=== PATIENT | female | born 1995 | race African-American/Black ===

== ENCOUNTER 2017-06-05 22:22 | Emergency (ER) | payer OTHER ==
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
[2017-06-06 01:43] VITALS: BP 123/75
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
== END 2017-06-06 02:00 | disposition home or self-care (01) ==
LOC: ER 22:22
DX: S39.012A Strain of muscle, fascia and tendon of lower back, initial encounter (principal); M54.9 Dorsalgia, unspecified; M54.5 Low back pain; M54.2 Cervicalgia; V87.7XXA Person injured in collision between other specified motor vehicles (traffic), initial encounter
CPT/HCPCS: 99284

== ENCOUNTER 2019-02-24 21:48 | Emergency (ER) | payer OTHER ==
[2019-02-24 22:39] LABS: ABSOLUTE EOSINOPHILS # (AUTO) 0.1 10^3/uL (0.0-0.6); ABSOLUTE LYMPHOCYTES (AUTO) 3.2 10^3/uL (0.5-4.7); ABSOLUTE MONOCYTES (AUTO) 0.4 10^3/uL (0.1-1.4); ABSOLUTE NEUT (AUTO) 4.1 10^3/uL (1.7-8.2); BASOPHILS % (AUTO) 0.2 % (0-2); EOSINOPHILS % (AUTO) 1.1 % (0-6); HEMATOCRIT 35.6 % (36.0-47.0); HEMOGLOBIN 11.9 g/dL (12.0-15.5); LYMPHOCYTES % (AUTO) 41.3 % (13-45); MEAN CORPUSCULAR HEMOGLOBIN 28.7 pg (27.0-33.4); MEAN CORPUSCULAR HGB CONC 33.6 g/dL (32.0-36.0); MEAN CORPUSCULAR VOLUME 86 fl (80-97); MONOCYTES % (AUTO) 5.7 % (3-13); PLATELET COUNT 193 10^3/uL (150-450); RED BLOOD COUNT 4.16 10^6/uL (3.72-5.28); RED CELL DISTRIBUTION WIDTH 14.2 % (11.5-14.0); SEGMENTED NEUTROPHILS % (AUTO) 51.7 % (42-78); TOTAL CELLS COUNTED % (AUTO) 100 %; WHITE BLOOD COUNT 7.8 10^3/uL (4.0-10.5)
[2019-02-24 22:42] LABS: APPEARANCE,URINE SLIGHTLY-CLOUDY; BILIRUBIN,URINE NEGATIVE (NEGATIVE); COLOR,URINE YELLOW; GLUCOSE, URINE NEGATIVE (NEGATIVE); KETONES,URINE TRACE mg/dL (NEGATIVE); LEUKOCYTE ESTERASE,URINE TRACE (NEGATIVE); NITRITE,URINE NEGATIVE (NEGATIVE); PROTEIN,URINE 30 mg/dL (NEGATIVE); URINE SPECIFIC GRAVITY 1.028; UROBILINOGEN,URINE NEGATIVE mg/dL (<2.0)
--- NOTE | 2019-02-24 22:53 | ER Document Report ---
ED Medical Screen (RME) - General Chief Complaint: Abdominal Pain Stated Complaint: ABDOMINAL PAIN Time Seen by Provider: 02/24/19 22:50 Primary Care Provider: SANTO WEBB [Primary Care Provider] - Follow up as needed Notes: She is a 24-year-old female presents to the emergency department with a chief complaint of lower abdominal pain. Patient states that the pain developed around the afternoon on Sunday. Patient states she has been taking ibuprofen with minimal relief. Patient states she did start her menstrual cycle on Sunday but that this pain is different from her normal menstrual cramping. Patient reports burning with urination and frequency. Patient also complaint of low back pain. Patient denies fever. Patient denies nausea vomiting or diarrhea. Patient denies vaginal discharge. Patient states she had a normal bowel movement today. Patient states she has not been sexually active and mo nths. TRAVEL OUTSIDE OF THE [place] IN LAST 30 DAYS: No - Related Data Allergies/Adverse Reactions: amoxicillin Allergy (Verified 02/24/19 21:52) Pertussis Vaccines Allergy (Verified 02/24/19 21:52) Past Medical History Renal/ Medical History: Denies: Hx Peritoneal Dialysis Physical Exam - Vital signs Vitals: Temp Pulse Resp BP Pulse Ox 98.7 F 67 20 118/74 100 02/24/19 22:15 02/24/19 22:15 02/24/19 22:15 02/24/19 22:15 02/24/19 22:15 - Abdominal Inspection: Normal Distension: No distension Bowel sounds: Normal Tenderness: Tender - RLQ Organomegaly: No organomegaly Course - Re-evaluation Re-evalutation: 02/24/19 22:51 Basic lab work and urinalysis initiated in triage. Patient did have right lower quadrant tenderness with palpation but will need a bed to further assessed the abdomen. I have greeted and performed a rapid initial assessment of this patient. A comprehensive ED assessment and evaluation of the patient, analysis of test results and completion of the medical decision making process will be conducted by additional ED providers. - Vital Signs Vital signs: Temp Pulse Resp BP Pulse Ox 98.7 F 67 20 118/74 100 02/24/19 22:15 02/24/19 22:15 02/24/19 22:15 02/24/19 22:15 02/24/19 22:15 - Laboratory Result Diagrams: 02/24/19 22:21 02/24/19 22:21 Laboratory results interpreted by me: 02/24/19 02/24/19 21:26 22:21 Hgb 11.9 L Hct 35.6 L RDW 14.2 H Urine Protein 30 H Urine Ketones TRACE H Urine Blood LARGE H Ur Leukocyte Esterase TRACE H Urine Ascorbic Acid 40 H Doctor's Discharge - Discharge Referrals: LOCALMD,NO [Primary Care Provider] - Follow up as needed
[2019-02-24 22:54] LABS: ALANINE AMINOTRANSFERASE 12 U/L (9-52); ALBUMIN 4.4 g/dL (3.5-5.0); ALKALINE PHOSPHATASE 49 U/L (38-126); ANION GAP 10 (5-19); ASPARTATE AMINO TRANSFERASE 18 U/L (14-36); BILIRUBIN,DIRECT 0.2 mg/dL (0.0-0.4); BILIRUBIN,TOTAL 0.3 mg/dL (0.2-1.3); BLOOD UREA NITROGEN 7 mg/dL (7-20); CALCIUM 9.1 mg/dL (8.4-10.2); CARBON DIOXIDE 27 mmol/L (22-30); CHLORIDE 105 mmol/L (98-107); GLUCOSE 85 mg/dL (75-110); LIPASE 69.1 U/L (23-300); POTASSIUM 3.4 mmol/L (3.6-5.0); SODIUM 141.5 mmol/L (137-145); TOTAL PROTEIN 7.2 g/dL (6.3-8.2)
[2019-02-25] MEDS ORDERED: SULFAMETHOXAZOLE/TRIMETHOPRIM 800-160 MG TABLET PO ONE (01:08)
--- NOTE | 2019-02-25 01:09 | ER Document Report ---
ED General - General Chief Complaint: Abdominal Pain Stated Complaint: ABDOMINAL PAIN Time Seen by Provider: 02/24/19 22:50 Primary Care Provider: SANTO WEBB [Primary Care Provider] - Follow up as needed Notes: Patient is a 24-year-old female that presents to the emergency department for chief complaint of right lower quadrant abdominal pain. Patient states that this pain started on Sunday, has been persistent, and ongoing since then describes it as a cramping sensation on the right side, and currently rates it as a 2 out of 10, she is no associated nausea, vomiting, fevers, chills, palpitations. She states it does feel like period cramps, she did start her menstrual cycle on Sunday, but it typically does not last as long. She has had some burning sensation and pain with urination as well, and is not sure if she is having a urinary tract infection or not. Denies any other complaints at this time. Past Medical History: Denies chronic medical conditions Past Surgical History: Spinal surgery Social History: Denies tobacco, alcohol or drug use. Family History: Reviewed and noncontributory for presenting illness Allergies: Reviewed, see documented allergy list. REVIEW OF SYSTEMS: Other than noted above, the 12 point review of systems was reviewed with the patient and were negative, all pertinent findings are included in the HPI. PHYSICAL EXAMINATION: Vital signs reviewed, nursing noted reviewed. GENERAL: Well-appearing, well-nourished and in no acute distress. HEAD: Atraumatic, normocephalic. EYES: Eyes appear normal, extraocular movements intact, sclera anicteric, conjunctiva are normal. ENT: nares patent, oropharynx clear without exudates. Moist mucous membranes. NECK: Normal range of motion, supple without lymphadenopathy LUNGS: Breath sounds clear to auscultation bilaterally and equal. No wheezes rales or rhonchi. HEART: Regular rate and rhythm without murmurs ABDOMEN: Soft, there is mild right lower quadrant and suprapubic tenderness to palpation on exam, no CVA tenderness, normoactive bowel sounds. No rebound, guarding, or rigidity. No masses appreciated. EXTREMITIES: Nontender, good range of motion, no pitting or edema. NEUROLOGICAL: No focal neurological deficits. Moves all extremities spontaneously Motor and sensory grossly intact on exam. PSYCH: Normal mood, normal affect. SKIN: Warm, Dry, normal turgor, no rashes or lesions noted on exposed skin TRAVEL OUTSIDE OF THE [place] IN LAST 30 DAYS: No - Related Data Allergies/Adverse Reactions: amoxicillin Allergy (Verified 02/24/19 21:52) Pertussis Vaccines Allergy (Verified 02/24/19 21:52) Past Medical History - Social History Smoking Status: Never Smoker Chew tobacco use (# tins/day): No Frequency of alcohol use: None Drug Abuse: None Family History: Reviewed & Not Pertinent Patient has suicidal ideation: No Patient has homicidal ideation: No Renal/ Medical History: Denies: Hx Peritoneal Dialysis Physical Exam - Vital signs Vitals: Temp Pulse Resp BP Pulse Ox 98.7 F 67 20 118/74 100 02/24/19 22:15 02/24/19 22:15 02/24/19 22:15 02/24/19 22:15 02/24/19 22:15 Course - Re-evaluation Re-evalutation: Patient seen and examined vital signs reviewed. Laboratory data and/or imaging were ordered as appropriate for the patient's presenting symptoms and complaint, with consideration of any critical or life th reatening conditions that may be associated with their obtained history and exam as noted above. Patient was treated with Bactrim, for possible urinary tract infection Results were reviewed when available and demonstrated no leukocytosis, mild anemia, CMP was essentially unremarkable, UA demonstrated signs of possible U TI, there was contaminant with blood however, will send for culture The patient was re-evaluated and was stable, did discuss with her the possibility of appendicitis, although at this time I am not convinced that is the etiology of her pain, however did offer obtaining CT imaging of the abdomen and pelvis, at this time the patient would rather watch and wait, advised 12-24 hours and if her symptoms were not better or worsening to return to the emergency department. Evaluation was most consistent with uti, RLQ abdominal pain. Results were discussed with the patient at this point, after careful consideration I feel that that patient can be discharged from the emergency department, the patient was educated treatments and reasons to return to the emergency department based on their presumed diagnosis as noted above, they were advised to followup with a primary care physician in 2-3 days. Patient was agreeable to plan of care. *Note is created using voice recognition software and may contain spelling, syntax or grammatical errors. Laboratory 02/24/19 02/24/1902/24/19 21:26 22:21 22:21 WBC 7.8 RBC 4.16 Hgb 11.9 L Hct 35.6 L MCV 86 MCH 28.7 MCHC 33.6 RDW 14.2 H Plt Count 193 Seg Neutrophils % 51.7 Lymphocytes % 41.3 Monocytes % 5.7 Eosinophils % 1.1 Basophils % 0.2 Absolute Neutrophils 4.1 Absolute Lymphocytes 3.2 Absolute Monocytes 0.4 Absolute Eosinophils 0.1 Absolute Basophils 0.0 Sodium 141.5 Potassium 3.4 L Chloride 105 Carbon Dioxide 27 Anion Gap 10 BUN 7 Creatinine 0.82 Est GFR ( Amer) > 60 Est GFR (Non-Af Amer) > 60 Glucose 85 Calcium 9.1 Total Bilirubin 0.3 Direct Bilirubin 0.2 Neonat Total Bilirubin Not Reportable Neonat Direct Bilirubin Not Reportable Neonat Indirect Bili Not Reportable AST 18 ALT 12 Alkaline Phosphatase 49 Total Protein 7.2 Albumin 4.4 Lipase 69.1 Urine Color YELLOW Urine Appearance SLIGHTLY-CLOUDY Urine pH 5.0 Ur Specific [place] 1.028 Urine Protein 30 H Urine Glucose (UA) NEGATIVE Urine Ketones TRACE H Urine Blood LARGE H Urine Nitrite NEGATIVE Urine Bilirubin NEGATIVE Urine Urobilinogen NEGATIVE Ur Leukocyte Esterase TRACE H Urine WBC (Auto) 10 Urine RBC (Auto) >182 Squamous Epi Cells Auto 3 Urine Mucus (Auto) MANY Urine Ascorbic Acid 40 H Urine HCG, Qual NEGATIVE - Vital Signs Vital signs: Temp Pulse Resp BP Pulse Ox 98.7 F 67 20 118/74 100 02/24/19 22:15 02/24/19 22:15 02/24/19 22:15 02/24/19 22:15 02/24/19 22:15 - Laboratory Result Diagrams: 02/24/19 22:21 02/24/19 22:21 Laboratory results interpreted by me: 02/24/19 02/24/19 02/24/19 21:26 22:21 22:21 Hgb 11.9 L Hct 35.6 L RDW 14.2 H Potassium 3.4 L Urine Protein 30 H Urine Ketones TRACE H Urine Blood LARGE H Ur Leukocyte Esterase TRACE H Urine Ascorbic Acid 40 H Discharge - Discharge Clinical Impression: UTI (urinary tract infection) Qualifiers: Urinary tract infection type: site unspecified Hematuria presence: with hematuria Qualified Code(s): N39.0 - Urinary tract infection, site not specified; R31.9 - Hematuria, unspecified Abdominal pain Qualifiers: Abdominal location: right lower quadrant Qualified Code(s): R10.31 - Right lower quadrant pain Condition: Stable Disposition: HOME, SELF-CARE Instructions: Observation for Appendicitis ([facility]) Additional Instructions: Please monitor for worsening symptoms, such as worsening pain, or if it goes over most of your abdomen, you develop fever, nausea or vomiting, if you develop any of the symptoms advised to return to the emergency department immediately. Prescriptions: Sulfamethoxazole/Trimethoprim [Bactrim Ds Tablet] 1 each PO BID #10 tablet Referrals: EBENEZER HAQ DO [NO LOCAL MD] - Follow up in 3-5 days
[2019-02-25 01:30] VITALS: BP 123/74
== END 2019-02-25 01:28 | disposition home or self-care (01) ==
LOC: ER 21:48
DX: N39.0 Urinary tract infection, site not specified (principal); R10.31 Right lower quadrant pain; Z88.0 Allergy status to penicillin
CPT/HCPCS: 36415; 80053; 81001; 81025; 83690; 85025; 87086; 99284

== ENCOUNTER 2019-02-25 06:54 | Emergency (ER) | payer SELFPAY ==
[2019-02-25] MEDS ORDERED: NORMAL SALINE 1000 ML 1,000 ML IV ONE (07:22)
[2019-02-25] MEDS ORDERED: ONDANSETRON HCL INJ/PF 4 MG/2 ML SDV IV ONE (07:22)
[2019-02-25] MEDS ORDERED: MORPHINE SULFATE 10 MG/ML INJ IV ONE (07:27)
--- NOTE | 2019-02-25 07:30 | ER Document Report ---
ED General - General Chief Complaint: Abdominal Pain Stated Complaint: ABDOMINAL PAIN Time Seen by Provider: 02/25/19 07:19 TRAVEL OUTSIDE OF THE [place] IN LAST 30 DAYS: No - HPI Notes: Patient is a 24-year-old female that presents to the emergency department for chief complaint of abdominal pain. Patient reports an achy lower abdominal pain that started on Sunday. She was seen in the emergency room yesterday for this and told to return in 12 to 24 hours if her pain is increasing for concern of possible appendicitis. Patient states since being discharged she has had worsening pain that is now more located in one spot in her right lower abdomen. She reports some mild nausea with no vomiting. She denies diarrhea fevers and chills. Patient is currently on her menstrual cycle. She is endorsing dysuria and states she was given an antibiotic yesterday for acute UTI. Patient denies history of abdominal surgeries in the past. Her last oral intake was Gatorade at around 1 AM Past Medical History: Denies chronic medical conditions Past Surgical History: Spinal surgery Social History: Denies tobacco, alcohol or drug use. Family History: Reviewed and noncontributory for presenting illness Allergies: Reviewed, see documented allergy list. REVIEW OF SYSTEMS: CONSTITUTIONAL : No fever No chills No diaphoresis No recent illness EENT: No vision changes No congestion No sore throat CARDIOVASCULAR: No chest pain No palpitations RESPIRATORY: No shortness of breath No cough No difficulty breathing GASTROINTESTINAL: abdominal pain nausea No vomiting No diarrhea GENITOURINARY: No dysuria No hematuria No difficulty urinating MUSCULOSKELETAL: No back pain No leg pain No arm pain SKIN: No rashes No lesions LYMPHATIC: No swollen, enlarged glands. NEUROLOGICAL: No lightheadedness No headache No weakness No paresthesias PSYCHIATRIC: No anxiety No depression PHYSICAL EXAMINATION: Vital signs reviewed, nursing noted reviewed. GENERAL: Well-appearing, well-nourished and in no acute distress. HEAD: Atraumatic, normocephalic. EYES: Eyes appear normal, extraocular movements intact, sclera anicteric, conjunctiva are normal. ENT: nares patent, oropharynx clear without exudates. Moist mucous membranes. NECK: Normal range of motion, supple without lymphadenopathy LUNGS: Breath sounds clear to auscultation bilaterally and equal. No wheezes rales or rhonchi. HEART: Regular rate and rhythm without murmurs ABDOMEN: Soft, positive McBurney's point tenderness, positive rebound tenderness in the right lower quadrant, normoactive bowel sounds. No rigidity or guarding EXTREMITIES: Nontender, good range of motion, no pitting or edema. NEUROLOGICAL: No focal neurological deficits. Moves all extremities spontaneously Motor and sensory grossly intact on exam. PSYCH: Normal mood, normal affect. SKIN: Warm, Dry, normal turgor, no rashes or lesions noted on exposed skin - Related Data Allergies/Adverse Reactions: amoxicillin Allergy (Verified 02/24/19 21:52) Pertussis Vaccines Allergy (Verified 02/24/19 21:52) Past Medical History - Social History Smoking Status: Never Smoker Family History: Reviewed & Not Pertinent Patient has suicidal ideation: No Patient has homicidal ideation: No Renal/ Medical History: Denies: Hx Peritoneal Dialysis Physical Exam - Vital signs Vitals: Temp Pulse Resp BP Pulse Ox 98.9 F 75 22 H 112/51 L 99 02/25/19 06:59 02/25/19 06:59 02/25/19 06:59 02/25/19 06:59 02/25/19 06:59 Course - Re-evaluation Re-evalutation: 02/25/19 07:29 Vitals reviewed. Nursing notes reviewed. I did review patient's chart from yes terday. She had no leukocytosis. She was started on Bactrim for acute UTI. Patient is reporting increased pain in her right lower quadrant and CT scan will be ordered to evaluate for acute appendicitis. 02/25/19 09:12 Patient reevaluated and states her pain has completely resolved. She has a anais ign abdominal exam but still reports some mild tenderness in the right lower quadrant. She has no peritoneal signs. CT scan shows no acute appendicitis. Patient does have some mild free fluid in her pelvis which may represent a ruptured ovarian cyst. Patient will continue taking the antibiotic she was prescribed. At this point I see no further indication for at this point patient is feeling much better and stable for discharge. She will follow with [facility] for follow-up of her UTI and possible ovarian cysts. Patient will return to the emergency room for worsening pain or new concerning symptoms. She is stable at discharge. Laboratory 02/25/19 02/25/19 07:53 07:53 WBC 6.3 RBC 4.04 Hgb 11.5 L Hct 34.6 L MCV 86 MCH 28.6 MCHC 33.4 RDW 14.6 H Plt Count 170 Seg Neutrophils % 53.7 Lymphocytes % 37.6 Monocytes % 7.3 Eosinophils % 1.2 Basophils % 0.2 Absolute Neutrophils 3.4 Absolute Lymphocytes 2.4 Absolute Monocytes 0.5 Absolute Eosinophils 0.1 Absolute Basophils 0.0 Sodium 140.5 Potassium 3.8 Chloride 107 Carbon Dioxide 27 Anion Gap 7 BUN 7 Creatinine 0.83 Est GFR ( Amer) > 60 Est GFR (Non-Af Amer) > 60 Glucose 86 Calcium 9.1 Total Bilirubin 0.3 Direct Bilirubin 0.2 Neonat Total Bilirubin Not Reportable Neonat Direct Bilirubin Not Reportable Neonat Indirect Bili Not Reportable AST 19 ALT 13 Alkaline Phosphatase 48 Total Protein 6.8 Albumin 4.0 Abdomen/Pelvis CT 02/25/19 07:21 IMPRESSION: 1. No specific CT findings to explain right lower quadrant abdominal pain. Normal appendix. 2. Trace free fluid in the pelvis and fluid in the endometrial cavity, likely functional in the reproductive age setting. - Vital Signs Vital signs: Temp Pulse Resp BP Pulse Ox 98.9 F 75 22 H 112/51 L 99 02/25/19 06:59 02/25/19 06:59 02/25/19 06:59 02/25/19 06:59 02/25/19 06:59 - Laboratory Result Diagrams: 02/25/19 07:53 02/25/19 07:53 Laboratory results interpreted by me: 02/25/19 07:53 Hgb 11.5 L Hct 34.6 L RDW 14.6 H Discharge - Discharge Clinical Impression: Acute UTI, Right lower quadrant abdominal pain Condition: Stable Disposition: HOME, SELF-CARE Instructions: Urinary Tract Infection ([facility]), Trimethoprim-Sulfa ([facility]) Additional Instructions: Please return to the emergency department if you have any worsening, or concern of your symptoms. Please return to the emergency department if you develop chest pain, difficulty breathing, severe abdominal pain, or ongoing vomiting. Please follow-up with your primary care physician in 2-3 days and any other recommended physicians. If prescribed, take all medications as directed. If you have any questions or concerns do not hesitate to return the emergency department for evaluation. [] Referrals: [facility] [Provider Group] - Follow up in 1 week
[2019-02-25 08:09] LABS: ABSOLUTE EOSINOPHILS # (AUTO) 0.1 10^3/uL (0.0-0.6); ABSOLUTE LYMPHOCYTES (AUTO) 2.4 10^3/uL (0.5-4.7); ABSOLUTE MONOCYTES (AUTO) 0.5 10^3/uL (0.1-1.4); ABSOLUTE NEUT (AUTO) 3.4 10^3/uL (1.7-8.2); BASOPHILS % (AUTO) 0.2 % (0-2); EOSINOPHILS % (AUTO) 1.2 % (0-6); HEMATOCRIT 34.6 % (36.0-47.0); HEMOGLOBIN 11.5 g/dL (12.0-15.5); LYMPHOCYTES % (AUTO) 37.6 % (13-45); MEAN CORPUSCULAR HEMOGLOBIN 28.6 pg (27.0-33.4); MEAN CORPUSCULAR HGB CONC 33.4 g/dL (32.0-36.0); MEAN CORPUSCULAR VOLUME 86 fl (80-97); MONOCYTES % (AUTO) 7.3 % (3-13); PLATELET COUNT 170 10^3/uL (150-450); RED BLOOD COUNT 4.04 10^6/uL (3.72-5.28); RED CELL DISTRIBUTION WIDTH 14.6 % (11.5-14.0); SEGMENTED NEUTROPHILS % (AUTO) 53.7 % (42-78); TOTAL CELLS COUNTED % (AUTO) 100 %; WHITE BLOOD COUNT 6.3 10^3/uL (4.0-10.5)
[2019-02-25 08:24] LABS: ALANINE AMINOTRANSFERASE 13 U/L (9-52); ALKALINE PHOSPHATASE 48 U/L (38-126); ANION GAP 7 (5-19); ASPARTATE AMINO TRANSFERASE 19 U/L (14-36); BILIRUBIN,DIRECT 0.2 mg/dL (0.0-0.4); BILIRUBIN,TOTAL 0.3 mg/dL (0.2-1.3); BLOOD UREA NITROGEN 7 mg/dL (7-20); CALCIUM 9.1 mg/dL (8.4-10.2); CARBON DIOXIDE 27 mmol/L (22-30); CHLORIDE 107 mmol/L (98-107); GLUCOSE 86 mg/dL (75-110); POTASSIUM 3.8 mmol/L (3.6-5.0); SODIUM 140.5 mmol/L (137-145); TOTAL PROTEIN 6.8 g/dL (6.3-8.2)
--- NOTE | 2019-02-25 09:06 | RADIOLOGY REPORT (SQ) ---
EXAM DESCRIPTION: CT ABD/PELVIS WITH IV ONLY COMPLETED DATE/TIME: 02/25/2019 8:53 am REASON FOR STUDY: RLQ pain COMPARISON: None. TECHNIQUE: CT scan of the abdomen and pelvis performed using helical scanning technique with dynamic intravenous contrast injection. No oral contrast. Images reviewed with lung, soft tissue, and bone windows. Reconstructed coronal and sagittal MPR images reviewed. Delayed images for evaluation of the urinary system also acquired. All images stored on PACS. All CT scanners at this facility use dose modulation, iterative reconstruction, and/or weight based d osing when appropriate to reduce radiation dose to as low as reasonably achievable (ALARA). [facility]: Dose Right [facility]: CareDose [facility]: Dose Right [facility]: Teradose 4D [facility]: Socratic Labs CONTRAST TYPE AND DOSE: contrast/concentration: Isovue 350.00 mg/ml; Total Contrast Delivered: 67.0 ml; Total Saline Delivered: 65.0 ml RENAL FUNCTION: None required. The patient is less than 50 years old. RADIATION DOSE: CT Rad equipment meets quality standard of care and radiation dose reduction techniq ues were employed. CTDIvol: NaN - NaN mGy. DLP: 0 mGy-cm.. LIMITATIONS: Streak artifact related to posterior thoracolumbar fusion. FINDINGS: LOWER CHEST: No significant findings. No nodules or infiltrates. LIVER: Normal size. No masses. No dilated ducts. SPLEEN: Normal size. No focal lesions. PANCREAS: No masses. No significant calcifications. No adjacent inflammation or peripancreatic fluid collections. Pancreatic duct not dilated. GALLBLADDER: No identified stones by CT criteria. No inflammatory changes to suggest cholecystitis. ADRENAL GLANDS: No significant masses or asymmetry. RIGHT KIDNEY AND URETER: No solid masses. No significant calcifications. No hydronephrosis or hyd roureter. LEFT KIDNEY AND URETER: No solid masses. No significant calcifications. No hydronephrosis or hydr oureter. AORTA AND VESSELS: No aneurysm. No dissection. Renal arteries, SMA, celiac without stenosis. RETROPERITONEUM: No retroperitoneal adenopathy, hemorrhage or masses. BOWEL AND PERITONEAL CAVITY: No masses or inflammatory changes. No free fluid or peritoneal masses. APPENDIX: Normal. PELVIS: No mass. Trace free fluid in the pelvis and fluid in the endometrial cavity. Normal bladder . ABDOMINAL WALL: No masses. No hernias. BONES: No significant or acute findings. Partially imaged extensive posterior thoracolumbar fusion. OTHER: No other significant finding. IMPRESSION: 1. No specific CT findings to explain right lower quadrant abdominal pain. Normal appen lyudmila. 2. Trace free fluid in the pelvis and fluid in the endometrial cavity, likely functional in the repr oductive age setting. TECHNICAL DOCUMENTATION: JOB ID: [id number] Quality ID # [id number]: Final reports with documentation of one or more dose reduction techniques (e.g., Au tomated exposure control, adjustment of the mA and/or kV according to patient size, use of iterative reconstruction technique) 2010 [employer]- All Rights Reserved Reading location - IP/workstation name: [email or web address]
[2019-02-25 09:45] VITALS: BP 97/47
== END 2019-02-25 09:43 | disposition home or self-care (01) ==
LOC: ER 06:54
DX: N39.0 Urinary tract infection, site not specified (principal); R10.31 Right lower quadrant pain; R10.813 Right lower quadrant abdominal tenderness; R11.0 Nausea; R18.8 Other ascites; Z88.0 Allergy status to penicillin; Z88.7 Allergy status to serum and vaccine
CPT/HCPCS: 99284; 96361; 96374; 96375; 36415; 85025; 80053; 74177; J2270; J2405; J7030

== ENCOUNTER 2019-07-13 14:00 | Emergency (ER) | payer SELFPAY ==
--- NOTE | 2019-07-13 14:12 | ER Document Report ---
ED Medical Screen (RME) - General Chief Complaint: Vaginal Bleeding Stated Complaint: VAGINAL BLEEDING Time Seen by Provider: 07/13/19 14:05 Notes: Patient is a 24-year-old female who presents to the emergency department there is chief complaint of vaginal bleeding. Patient reports that last menstrual cycle was June 15. Patient reports she is not on control and is sexually active. Patient reports that typically her menstrual cycle lasts about 3 days and is regular. Patient reports she was not due for her period but started bleeding vaginally about 1 week ago. Patient reports this has been heavy in nature with small amount of clots. Patient reports she is also having severe pelvic pain. Patient reports that the bleeding is bright red. Patient reports she has had pelvic pain like this before and was told she potentially had a cyst that ruptured. Patient denies urinary symptoms. TRAVEL OUTSIDE OF THE [place] IN LAST 30 DAYS: No - Related Data Allergies/Adverse Reactions: amoxicillin Allergy (Verified 02/24/19 21:52) Pertussis Vaccines Allergy (Verified 02/24/19 21:52) Past Medical History - Social History Frequency of alcohol use: None Drug Abuse: None Renal/ Medical History: Denies: Hx Peritoneal Dialysis Course - Re-evaluation Re-evalutation: 07/13/19 14:12 I have greeted and performed a rapid initial assessment of this patient. A comprehensive ED assessment and evaluation of the patient, analysis of test results and completion of the medical decision making process will be conducted by additional ED providers.
[2019-07-13 14:47] LABS: APPEARANCE,URINE CLOUDY; BILIRUBIN,URINE NEGATIVE (NEGATIVE); COLOR,URINE YELLOW; GLUCOSE, URINE NEGATIVE (NEGATIVE); KETONES,URINE NEGATIVE (NEGATIVE); LEUKOCYTE ESTERASE,URINE NEGATIVE (NEGATIVE); NITRITE,URINE NEGATIVE (NEGATIVE); PROTEIN,URINE NEGATIVE (NEGATIVE); URINE SPECIFIC GRAVITY 1.023; UROBILINOGEN,URINE NEGATIVE mg/dL (<2.0)
[2019-07-13 14:51] LABS: ABSOLUTE LYMPHOCYTES (AUTO) 2.2 10^3/uL (0.5-4.7); ABSOLUTE MONOCYTES (AUTO) 0.5 10^3/uL (0.1-1.4); ABSOLUTE NEUT (AUTO) 4.6 10^3/uL (1.7-8.2); BASOPHILS % (AUTO) 0.2 % (0-2); EOSINOPHILS % (AUTO) 0.7 % (0-6); HEMATOCRIT 37.8 % (36.0-47.0); HEMOGLOBIN 12.6 g/dL (12.0-15.5); MEAN CORPUSCULAR HEMOGLOBIN 28.5 pg (27.0-33.4); MEAN CORPUSCULAR HGB CONC 33.4 g/dL (32.0-36.0); MEAN CORPUSCULAR VOLUME 85 fl (80-97); MONOCYTES % (AUTO) 6.8 % (3-13); PLATELET COUNT 188 10^3/uL (150-450); RED BLOOD COUNT 4.42 10^6/uL (3.72-5.28); RED CELL DISTRIBUTION WIDTH 15.7 % (11.5-14.0); SEGMENTED NEUTROPHILS % (AUTO) 62.3 % (42-78); TOTAL CELLS COUNTED % (AUTO) 100 %; WHITE BLOOD COUNT 7.3 10^3/uL (4.0-10.5)
[2019-07-13 15:07] LABS: ALBUMIN 5.1 g/dL (3.5-5.0); ALKALINE PHOSPHATASE 56 U/L (38-126); ANION GAP 13 (5-19); ASPARTATE AMINO TRANSFERASE 23 U/L (14-36); BILIRUBIN,DIRECT 0.2 mg/dL (0.0-0.4); BILIRUBIN,TOTAL 0.7 mg/dL (0.2-1.3); BLOOD UREA NITROGEN 7 mg/dL (7-20); CALCIUM 9.9 mg/dL (8.4-10.2); CARBON DIOXIDE 23 mmol/L (22-30); CHLORIDE 107 mmol/L (98-107); GLUCOSE 82 mg/dL (75-110); POTASSIUM 4.4 mmol/L (3.6-5.0); TOTAL PROTEIN 8.6 g/dL (6.3-8.2)
--- NOTE | 2019-07-13 15:18 | RADIOLOGY REPORT (SQ) ---
EXAM DESCRIPTION: U/S NON OB PEL TV W/DOPPLER COMPLETED DATE/TIME: 07/13/2019 2:49 pm REASON FOR STUDY: severe pelvic pain, hx. ovarian cysts COMPARISON: None. TECHNIQUE: Grayscale images acquired of the pelvis via transvaginal approach and recorded on PACS. A dditional selected color Doppler and spectral images recorded. LIMITATIONS: None. FINDINGS: UTERUS: Measures 7.0 x 3.0 x 5.4 cm. No focal myometrial mass was seen. ENDOMETRIAL STRIPE: Measures 2.4 mm in double wall thickness, within normal limits. CERVIX: Measures 2.2 cm in length. RIGHT OVARY AND DOPPLER: Measures 2.1 x 1.8 x 2.1 cm. Flow by Doppler was shown to the right ovary. Small follicles are noted. LEFT OVARY AND DOPPLER: Measures 2.1 x 1.5 x 2.1 cm. Flow by Doppler was shown to the left ovary. S mall follicles are noted. FREE FLUID: None noted. IMPRESSION: NORMAL TRANSVAGINAL PELVIC ULTRASOUND. TECHNICAL DOCUMENTATION: JOB ID: [id number] [place]-64 2010 [employer]- All Rights Reserved Rev-01/11 Reading location - IP/workstation name: [email or web address]
[2019-07-13 16:10] LABS: BACTERIA (WET MOUNT) 3+ BACTERIA SEEN; RBCS (WET MOUNT) 4+ RBCS SEEN; T.VAGINALIS (WET MOUNT) NO TRICHOMONAS SEEN; WBCS (WET MOUNT) 1+ WBCS SEEN; YEAST (WET MOUNT) NO YEAST SEEN
--- NOTE | 2019-07-13 16:43 | ER Document Report ---
HPI - HPI Time Seen by Provider: 07/13/19 14:05 Pain Level: 4 Notes: Patient is a 24-year-old female who presents to the emergency department there is chief complaint of vaginal bleeding. Patient reports that last menstrual cycle was June 15. Patient reports she is not on control and is sexually active. Patient reports that typically her menstrual cycle lasts about 3 days and is regular. Patient reports she was not due for her period but started bleeding vaginally about 1 week ago. Patient reports this has been heavy in nature with small amount of clots. Patient reports she is also having severe pelvic pain. Patient reports that the bleeding is bright red. Patient reports she has had pelvic pain like this before and was told she potentially h ad a cyst that ruptured. Patient denies urinary symptoms. - REPRODUCTIVE LMP: 07/06/19 Reproductive: REPORTS: :, Postmenopausal Past Medical History - General Information source: Patient - Social History Smoking Status: Never Smoker Frequency of alcohol use: None Drug Abuse: None Family History: Reviewed & Not Pertinent Patient has suicidal ideation: No Patient has homicidal ideation: No Renal/ Medical History: Denies: Hx Peritoneal Dialysis Surgical Hx: Negative - Immunizations Immunizations up to date: Yes Vertical Provider Document - CONSTITUTIONAL Notes: PHYSICAL EXAMINATION: GENERAL: Well-appearing, well-nourished and in no acute distress. HEAD: Atraumatic, normocephalic. EYES: Pupils equal round and reactive to light, extraocular movements intact, conjunctiva are normal. ENT: Nares patent, oropharynx clear without exudates. Moist mucous membranes. NECK: Normal range of motion, supple without lymphadenopathy LUNGS: Breath sounds clear to auscultation bilaterally and equal. No wheezes rales or rhonchi. HEART: Regular rate and rhythm without murmurs ABDOMEN: Soft, nontender, nondistended abdomen. No guarding, no rebound. No masses appreciated. Female : No CVA tenderness. Normal external genitalia, no cervical motion tenderness or adnexal tenderness. Thin white vaginal discharge noted. Musculoskeletal: Normal range of motion, no pitting or edema. No cyanosis. NEUROLOGICAL: Cranial nerves grossly intact. Normal speech, normal gait. Normal sensory, motor exams PSYCH: Normal mood, normal affect. SKIN: Warm, Dry, normal turgor, no rashes or lesions noted. - INFECTION CONTROL TRAVEL OUTSIDE OF THE [place] IN LAST 30 DAYS: No Course - Re-evaluation Re-evalutation: Laboratory 07/13/19 07/13/19 07/13/19 14:11 14:22 14:26 WBC 7.3 RBC 4.42 Hgb 12.6 Hct 37.8 MCV 85 MCH 28.5 MCHC 33.4 RDW 15.7 H Plt Count 188 Lymph % (Auto) 30.0 Sharkey % (Auto) 6.8 Eos % (Auto) 0.7 Baso % (Auto) 0.2 Absolute Neuts (auto) 4.6 Absolute Lymphs (auto) 2.2 Absolute Monos (auto) 0.5 Absolute Eos (auto) 0.0 Absolute Basos (auto) 0.0 Seg Neutrophils % 62.3 Sodium Potassium Chloride Carbon Dioxide Anion Gap BUN Creatinine Est GFR ( Amer) Est GFR (MDRD) Non-Af Glucose Calcium Total Bilirubin Direct Bilirubin Neonat Total Bilirubin Neonat Direct Bilirubin Neonat Indirect Bili AST ALT Alkaline Phosphatase Total Protein Albumin Serum HCG, Qual NEGATIVE Urine Color YELLOW Urine Appearance CLOUDY Urine pH 7.0 Ur Specific [place] 1.023 Urine Protein NEGATIVE Urine Glucose (UA) NEGATIVE Urine Ketones NEGATIVE Urine Blood MODERATE H Urine Nitrite NEGATIVE Urine Bilirubin NEGATIVE Urine Urobilinogen NEGATIVE Ur Leukocyte Esterase NEGATIVE Urine WBC (Auto) 6 Urine RBC (Auto) >182 Urine Bacteria (Auto) TRACE Squamous Epi Cells Auto <1 Urine Mucus (Auto) RARE Urine Ascorbic Acid 40 H Bacteria (Wet Prep) Trichomonas (Wet Prep) Vaginal WBC Vaginal RBC Vaginal Yeast Chlamydia DNA (PCR) N.gonorrhoeae DNA (PCR) 07/13/19 07/13/19 07/13/19 14:26 15:56 15:56 WBC RBC Hgb Hct MCV MCH MCHC RDW Plt Count Lymph % (Auto) Sharkey % (Auto) Eos % (Auto) Baso % (Auto) Absolute Neuts (auto) Absolute Lymphs (auto) Absolute Monos (auto) Absolute Eos (auto) Absolute Basos (auto) Seg Neutrophils % Sodium 143.2 Potassium 4.4 Chloride 107 Carbon Dioxide 23 Anion Gap 13 BUN 7 Creatinine 0.89 Est GFR ( Amer) > 60 Est GFR (MDRD) Non-Af > 60 Glucose 82 Calcium 9.9 Total Bilirubin 0.7 Direct Bilirubin 0.2 Neonat Total Bilirubin Not Reportable Neonat Direct Bilirubin Not Reportable Neonat Indirect Bili Not Reportable AST 23 ALT 9 Alkaline Phosphatase 56 Total Protein 8.6 H Albumin 5.1 H Serum HCG, Qual Urine Color Urine Appearance Urine pH Ur Specific [place] Urine Protein Urine Glucose (UA) Urine Ketones Urine Blood Urine Nitrite Urine Bilirubin Urine Urobilinogen Ur Leukocyte Esterase Urine WBC (Auto) Urine RBC (Auto) Urine Bacteria (Auto) Squamous Epi Cells Auto Urine Mucus (Auto) Urine Ascorbic Acid Bacteria (Wet Prep) 3+ BACTERIA SEEN Trichomonas (Wet Prep) NO TRICHOMONAS SEEN Vaginal WBC 1+ WBCS SEEN Vaginal RBC 4+ RBCS SEEN Vaginal Yeast NO YEAST SEEN Chlamydia DNA (PCR) NOT DETECTED N.gonorrhoeae DNA (PCR) NOT DETECTED - Laboratory Result Diagrams: 07/13/19 14:26 07/13/19 14:26 Laboratory results interpreted by me: 07/13/19 07/13/19 07/13/19 14:11 14:26 14:26 RDW 15.7 H Total Protein 8.6 H Albumin 5.1 H Urine Blood MODERATE H Urine Ascorbic Acid 40 H Discharge - Discharge Clinical Impression: Bacterial vaginosis, Abnormal vaginal bleeding Condition: Stable Disposition: HOME, SELF-CARE Additional Instructions: You have an overgrowth of natural vaginal bacteria, called bacterial vaginosis. You are being treated with an antibiotic called metronidazole. Do not drink alcohol while taking this medication. Complete all of the antibiotic even if your symptoms have resolved. Return for abdominal pain, vomiting, fever of greater than 101F, or any other symptoms that are worrisome to you. Please follow-up with your [facility] or primary care doctor as needed. You were seen today for dysfunctional uterine bleeding. This is when you have vaginal bleeding and abdominal cramping off of your normal menstrual cycle. You need to follow-up with [facility]INE [facility]PERATOR or your primary care physician. Return immediately if you worsening pain, you began bleeding through more than 2 pads per hour for more than 3 hours, you pass out, have persistent vomiting, develop a fever greater than 100.4F, or any other symptoms that are concerning to you. Prescriptions: Metronidazole [Flagyl 500 mg Tablet] 500 mg PO BID #14 tablet Forms: Return to Work
[2019-07-13 16:54] VITALS: BP 127/86
[2019-07-13 17:39] LABS: CHLAM PCR NOT DETECTED (NOT DETECT)
== END 2019-07-13 16:55 | disposition home or self-care (01) ==
LOC: ER 14:00
DX: N76.0 Acute vaginitis (principal); B96.89 Other specified bacterial agents as the cause of diseases classified elsewhere; N93.9 Abnormal uterine and vaginal bleeding, unspecified; R10.2 Pelvic and perineal pain
CPT/HCPCS: 36415; 76830; 80053; 81001; 84703; 85025; 87210; 87491; 87591; 93976; 99284